=== PATIENT | male | born 1975 | race Two or more races ===

== ENCOUNTER → 2020-02-07 | Emergency (ER) | payer SELFPAY ==
[~2020-02-07] VITALS: Ht 165.1 cm; Wt 69.9 kg
[2020-02-07 23:20] VITALS: BP 134/74
== END | disposition home or self-care (01) ==
LOC: ER 21:05
DX: S82.892A Other fracture of left lower leg, initial encounter for closed fracture (principal); S73.102A Unspecified sprain of left hip, initial encounter; W11.XXXA Fall on and from ladder, initial encounter; Y93.89 Activity, other specified; Y92.89 Other specified places as the place of occurrence of the external cause; Y99.8 Other external cause status
CPT/HCPCS: 29505; 29515; 73502; 73562; 73610